=== PATIENT | male | born 1985 | race Caucasian/White ===

== ENCOUNTER → 2020-06-20 | Outpatient (CLI) | payer OTHER ==
[~2020-06-20] MED LIST: BONINE25 MG PO; MECLIZINE HCL25 M1 PO; PHENERGAN 25 MG25 M1 PO
== END ==
LOC: CAT 08:27
PROVIDERS: ATTEND Family Medicine
DX: Z13.6 Encounter for screening for cardiovascular disorders (principal); I25.10 Atherosclerotic heart disease of native coronary artery without angina pectoris; E78.00 Pure hypercholesterolemia, unspecified